=== PATIENT | female | born 1965 | race Caucasian/White ===

== ENCOUNTER 2021-04-24 10:33 | Outpatient (CLI) | payer OTHER, SELFPAY ==
--- NOTE | ~2021-04-24 | US_ITS ---
EXAMINATION: US thyroid DATE: 04/24/2021 11:00 INDICATION: Single nontoxic thyroid nodule. TECHNIQUE: Multiple ultrasound images of the thyroid were obtained. COMPARISON: None. FINDINGS: The right thyroid lobe measures 4.7 x 1.7 x 1.4 cm. The left thyroid lobe measures 4.4 x 1.7 x 1.5 c m. The thyroid is diffusely heterogeneous and hypoechoic. Vascularity is normal. No discrete nodule. IMPRESSION: 1. Heterogeneous thyroid, likely chronic lymphocytic ([place]) thyroiditis. Reviewed, dictated and finalized at location A.
== END 2021-04-24 10:34 | disposition home or self-care (01) ==
LOC: ANHIMG 10:38
PROVIDERS: PCP Family Medicine; Visit Provider Physician Assistant
DX: E04.1 Nontoxic single thyroid nodule (principal); E06.3 Autoimmune thyroiditis
CPT/HCPCS: 76536